=== PATIENT | male | born 1990 ===

== ENCOUNTER 2018-04-30 18:51 | Emergency (ER) | payer SELFPAY ==
[2018-04-30 19:07] VITALS: BP 114/75; PULSE 87; RESP 16; TEMP 98.2; O2SAT 97
[2018-04-30 19:08] VITALS: BMI 20.3
--- NOTE | 2018-04-30 19:45 | ED PDOC ---
HPI: Skin/Bite Injury Time Seen by Provider: 04/30/18 19:11 Chief Complaint (Nursing): Abnormal Skin Integrity Chief Complaint (Provider): Abnormal Skin Integrity History Per: Patient History/Exam Limitations: no limitations Onset/Duration Of Symptoms: Days (4x) Current Symptoms Are (Timing): Still Present Quality Of Symptoms: Itching Additional Complaint(s): 27 year old male with no past medical history presents to the ED for an evaluation of a poison kerrie rash he sustained 4x days ago. Patient states his symptoms started when his uncle asked him to take down a tree in his yard, where he came in contact with poison kerrie. Patient states the rash spread from his upper extremities to his back, neck, face, and groin area. Patient reports teresa ing benadryl at onset, but has not taken anything for the past 3x days. Patient reports itching and denies pain, fevers, facial swelling, and shortness of breath. Otherwise patient reports (-) throat swelling, (-) tongue / lip swelling, (-) dyspnea, (-) cough, (-) fever, (-) abdominal pain, (-) nausea (-) vomiting. PMD: None. Past Medical History Reviewed: Historical Data, Nursing Documentation, Vital Signs Vital Signs: Last Vital Signs Temp 98.2 F 04/30/18 19:15 Pulse 87 04/30/18 19:15 Resp 16 04/30/18 19:15 BP 114/75 04/30/18 19:07 Pulse Ox 97 04/30/18 19:15 - Medical History PMH: No Chronic Diseases - Surgical History Surgical History: No Surg Hx - Family History Family History: States: No Known Family Hx - Social History Current smoker - smoking cessation education provided: No Alcohol: None Drugs: Cannabis - Home Medications Home Medications: Ambulatory Orders Medication Instructions Recorded Calamine/Zinc Oxide [Calamine 1 applic TOP BID PRN #1 bottle 04/30/18 Lotion] DiphenhydrAMINE [Benadryl] 50 mg PO Q6 PRN #20 cap 04/30/18 Famotidine [Pepcid] 40 mg PO DAILY #5 tab 04/30/18 RX: predniSONE [predniSONE Tab] 40 mg PO DAILY #8 tab 04/30/18 - Allergies Allergies/Adverse Reactions: Allergies Allergy/AdvReac Type Severity Reaction Status Date / Time peanut Allergy ANAPHYLAXIS Verified 04/30/18 19:22 Review of Systems ROS Statement: Except As Marked, All Systems Reviewed And Found Negative Constitutional: Negative for: Fever Respiratory: Negative for: Shortness of Breath Skin: Positive for: Rash (upper extremities, neck, back, face, groin. itchiness. denies pain.). Negative for: Other (facial swelling) Physical Exam - Reviewed Nursing Documentation Reviewed: Yes Vital Signs Reviewed: Yes - Physical Exam Comments: GENERAL APPEARANCE: Patient is awake, alert, oriented x 3, resting comfortably, no acute distress. SKIN: (-) facial swelling, (+) diffuse erythematous vesicular rash to bilateral upper extremities, posterior neck, right side of face/forehead. (+) excoriations to forearms. Otherwise (-) evidence of cellulitis, (-) edema (-) drainage HENT: (-) conjunctival injection, (-) chemosis. Oropharynx: clear (-) tongue or lip swelling, (-) tonsillar exudates, (-) erythema. Airway: patent (-) stridor, (-) hoarseness. Mucous membranes moist. Nares: Patent (-) rhinorrhea. NECK: Supple, FROM (-) lymphadenopathy, (-) tenderness. CHEST AND RESPIRATORY: (-) rales, (-) rhonchi, (-) wheezes; breath sounds equal bilaterally. Respirations even and nonlabored. CARDIOVASCULAR: Normal rate and rhythm (-) irregularity NEURO: Mental status as above. Gait: steady. Speech: clear. (-) facial asymmetry (-) focal deficit. - ECG O2 Sat by Pulse Oximetry: 97 (RA) Pulse Ox Interpretation: Normal Medical Decision Making Medical Decision Makin:10 Clinical impression: 27 year old male with poison kerrie dermatitis, pruritis Initial plan: * benadryl 50 mg PO ( not driving home) * pepcid 40 mg PO * solumedrol 125 mg IM * reevaluation 2034 On re-evaluation, patient reports improvement of symptoms. On exam, patient remains AAOx3, in no acute distress. Lungs clear to auscultation, cardiac RRR, repeat neuro exam shows no focal findings. Vitals stable. Lab/Diagnostic results d/w the patient in great detail. Diagnosis of poison kerrie dermatitis, pruritis d/w the patient. Based on history, exam and diagnostic results, plan will be for outpatient follow up with clinic. Patient instructed to follow-up with pmd / referral provided / the clinic in 1- 2 days without fail. Advised to take medication as prescribed. Return to the emergency room at any time for any new or worsening symptoms. Patient states he fully agrees with and understands discharge instructions. States that he agrees with the plan and disposition. Verbalized and repeated discharge instructions and plan. I have given the patient opportunity to ask any additional questions. Scribe Attestation: Documented by Yenny Mcghee, acting as a scribe for Yenny Birch Provider Scribe Attestation: All medical record entries made by the Scribe were at my direction and personally dictated by me. I have reviewed the chart and agree that the record accurately reflects my personal performance of the history, physical exam, medical decision making, and the department course for this patient. I have also personally directed, reviewed, and agree with the discharge instructions and disposition. Disposition - Clinical Impression Clinical Impression: Poison kerrie dermatitis, Generalized pruritus - Patient ED Disposition Is Patient to be Admitted: No Counseled Patient/Family Regarding: Studies Performed, Diagnosis, Need For Followup, Rx Given - Disposition Referrals: [facility] [Outside] Disposition: Routine/Home Disposition Time: 20:35 Condition: STABLE Additional Instructions: The emergency medical care you received today was directed at your acute symptoms. If you were prescribed any medication, please fill it and take as directed. It may take several days for your symptoms to resolve. Return to the Emergency Department if your symptoms worsen, do not improve, or if you have any other problems. Please contact your doctor in 2 days for re-evaluation and follow up / or call one of the physicians/clinics you have been referred to that are listed on the Patient Visit Information form that is included in your discharge packet. Bring any paperwork you were given at discharge with you along with any medications you are taking to your follow up visit. Our treatment cannot replace ongoing medical care by a primary care provider (PCP) outside of the emergency department. Prescriptions: Calamine/Zinc Oxide [Calamine Lotion] 1 applic TOP BID PRN #1 bottle PRN Reason: Itching / Pruritus DiphenhydrAMINE [Benadryl] 50 mg PO Q6 PRN #20 cap PRN Reason: Itching / Pruritus Famotidine [Pepcid] 40 mg PO DAILY #5 tab RX: predniSONE [predniSONE Tab] 40 mg PO DAILY #8 tab Instructions: Poison [place], Poison [place], Poison [place] ([place]), Itchy Skin Forms: [facility] (Greenlandic) Print Language: UKRAINIAN - POA Present On Arrival: None
== END 2018-04-30 20:53 | disposition home or self-care (01) ==
LOC: H.ER 18:51
DX: L23.7 Allergic contact dermatitis due to plants, except food (principal)
CPT/HCPCS: 96372; 99283; J2930